=== PATIENT | female | born 1975 | race Caucasian/White ===

== ENCOUNTER 2017-11-21 07:56 | Day surgery (SDC) | payer OTHER ==
[2017-11-20 09:46] VITALS: BMI 22.8
[2017-11-21 10:01] VITALS: TEMP 98.2
[2017-11-21 12:52] VITALS: BP 107/61; PULSE 86
--- NOTE | 2017-11-22 17:49 | PATH ---
Surgical Pathology Report Patient Name: CARTER BISHOP [facility]. Rec. #: [id number] /Age/Gender: 1975 (Age: 42) / F Account: [id number] Location: [facility]-ENDOSCOPY Taken: 11/21/2017 Received: 11/21/2017 Reported: 11/22/2017 Physicians: Sylvester Pablo D.O. Specimen(s) Received A: POLYP SIGMOID B: RECTAL POLYP Clinical History Family history of colon cancer , colon polyps Final Diagnosis A. SIGMOID POLYP, POLYPECTOMY: HYPERPLASTIC POLYP. B. RECTAL POLYP, POLYPECTOMY: HYPERPLASTIC POLYP. Electronically Signed Monica Sin M.D. Gross Description A. Received in formalin, labeled "sigmoid polyp" are multiple lynn, irregular portions of soft tissue measuring 0.4 cm. in greatest dimension. The specimens are submitted in toto in one cassette. B. Received in formalin, labeled "rectal polyp" is a lynn, irregular portion of soft tissue measuring 0.3 cm. in greatest dimension. The specimens are submitted in toto in one cassette. __ KWS/11/21/2017 buck/11/21/2017
== END 2017-11-21 11:05 | disposition home or self-care (01) ==
LOC: JASU-ENDO 07:56
PROVIDERS: ATTEND Internal Medicine Gastroenterology
PROC: 0DBN8ZX Excision of Sigmoid Colon, Via Natural or Artificial Opening Endoscopic, Diagnostic (ICD-10-PCS; 2017-11-21)
PROC: 0DBP8ZX Excision of Rectum, Via Natural or Artificial Opening Endoscopic, Diagnostic (ICD-10-PCS; principal; 2017-11-21 08:45)
DX: Z12.11 Encounter for screening for malignant neoplasm of colon (principal); Z80.0 Family history of malignant neoplasm of digestive organs; K63.5 Polyp of colon; K62.1 Rectal polyp; K64.8 Other hemorrhoids; K63.89 Other specified diseases of intestine
CPT/HCPCS: 84703; 88305-TC

== ENCOUNTER 2022-08-25 05:21 | Day surgery (SDC) | payer BC ==
[2022-08-23 14:08] VITALS: BMI 23.5
[2022-08-25 08:41] VITALS: TEMP 98
[2022-08-25 09:11] VITALS: BP 125/64; PULSE 82; RESP 19
== END 2022-08-25 09:20 | disposition home or self-care (01) ==
LOC: JASU-ENDO 05:21
PROVIDERS: ATTEND Internal Medicine Gastroenterology
PROC: 0DJD8ZZ Inspection of Lower Intestinal Tract, Via Natural or Artificial Opening Endoscopic (ICD-10-PCS; principal; 2022-08-25 08:00)
DX: Z12.11 Encounter for screening for malignant neoplasm of colon (principal); K64.8 Other hemorrhoids; Z86.010 Personal history of colon polyps; Z80.0 Family history of malignant neoplasm of digestive organs
CPT/HCPCS: 81025

== ENCOUNTER 2023-06-30 04:16 | Day surgery (SDC) | payer BC ==
[2023-06-27 19:13] VITALS: BMI 22.7
[2023-06-30] MEDS ORDERED: BUPIVACAINE HCL/PF 0.5% (5MG/ML) 10 ML VIAL ONE (07:19)
[2023-06-30] MEDS ORDERED: PROPOFOL 40 ML ONE ×2 (07:31→09:26)
[2023-06-30] MEDS ORDERED: ROCURONIUM BROMIDE 50 MG/5 ML SYRINGE ONE (07:31)
[2023-06-30] MEDS ORDERED: DEXAMETHASONE SOD PHOSPHATE 4 MG/1 ML VIAL ONE (07:31)
[2023-06-30] MEDS ORDERED: LIDOCAINE HCL/PF 2% SDV 5ML VIAL ONE (07:31)
[2023-06-30] MEDS ORDERED: ACETAMINOPHEN INJECTION 100 ML IVPB ONE (07:31)
[2023-06-30] MEDS ORDERED: ceFAZolin SODIUM 1 GM VIAL ONE (07:31)
[2023-06-30] MEDS ORDERED: MIDAZOLAM HCL 2 MG/2 ML SINGLE DOSE VIAL ONE (07:32)
[2023-06-30] MEDS ORDERED: FENTANYL CITRATE/PF 50 MCG/ML VIAL ONE ×4 (07:32→12:29)
[2023-06-30] MEDS: ceFAZolin SODIUM 1 GM VIAL IVPB ONE ×2 (08:15)
[2023-06-30] MEDS: BUPIVACAINE HCL/PF 0.5% (5 MG/ML) 30 ML VIAL IJ ONE ×3 (08:31)
[2023-06-30] MEDS ORDERED: NEOSTIGMINE METHYLSULFATE 0.5 MG/1 ML - 10 ML MDV ONE (09:57)
[2023-06-30] MEDS ORDERED: ONDANSETRON 4 MG/2 ML VIAL IVPUSH PRN (10:35)
[2023-06-30] MEDS ORDERED: LACTATED RINGERS SOLUTION 1,000 ML IV SCH (10:45)
[2023-06-30 13:18] VITALS: RESP 18
[2023-06-30] MEDS ORDERED: oxyCODONE HCL 5 MG TABLET ONE (13:36)
[2023-06-30] MEDS: oxyCODONE HCL 5 MG TABLET PO PRN (13:41)
[2023-06-30 13:44] VITALS: BP 138/78; PULSE 69; TEMP 97.1
== END 2023-06-30 15:25 | disposition home or self-care (01) ==
LOC: JASU-SURG 04:16
PROVIDERS: ATTEND Surgery
PROC: 0FT44ZZ Resection of Gallbladder, Percutaneous Endoscopic Approach (ICD-10-PCS; principal; 2023-06-30 08:00)
DX: K80.10 Calculus of gallbladder with chronic cholecystitis without obstruction (principal); K66.0 Peritoneal adhesions (postprocedural) (postinfection); K82.1 Hydrops of gallbladder
CPT/HCPCS: 81025; 88304-TC; 94760; J0131

== ENCOUNTER 2023-07-13 05:20 | Inpatient (IN) | payer BC ==
[2023-07-13] MEDS ORDERED: morphine SULFATE 4 MG/ML VIAL ONE ×3 (05:51→08:35)
[2023-07-13] MEDS ORDERED: ONDANSETRON 4 MG/2 ML VIAL ONE (05:51)
[2023-07-13] MEDS: morphine CARPU-JECT 4 MG/1 ML DISP.SYRIN IVPUSH ONE ×4 (06:08→08:46)
[2023-07-13] MEDS: LACTATED RINGERS SOLUTION 1000 ML INFUS.BAG IV ONE (06:08)
[2023-07-13] MEDS: ONDANSETRON 4 MG/2 ML VIAL IVPUSH ONE (06:09)
[2023-07-13 06:27] LABS: BASO % 0.9 % (0-2.0); EOS % 3.2 % (0-4.5); HEMATOCRIT 42.1 % (32.4-45.2); HEMOGLOBIN 14.1 GM/dL (10.7-15.3); MCH 31.2 pg (25.7-33.7); MCHC 33.5 g/dl (32.0-36.0); MEAN PLT VOLUME 8.2 fl (7.5-11.1); MONO % 6.1 % (3.8-10.2); NEUT % 65.8 % (42.8-82.8); PLATELET COUNT 323 10^3/uL (134-434); RBC 4.52 M/mm3 (3.60-5.2); RDW 12.2 % (11.6-15.6); WHITE BLOOD COUNT 7.6 K/mm3 (4.0-10.0)
[2023-07-13 06:31] LABS: CALCIUM 9.4 mg/dL (8.5-10.1)
[2023-07-13 06:32] LABS: ALBUMIN 3.8 g/dl (3.4-5.0)
[2023-07-13 06:35] LABS: CREATININE 0.9 mg/dL (0.55-1.3)
[2023-07-13 06:36] LABS: BILIRUBIN,TOTAL 0.9 mg/dL (0.2-1); MAGNESIUM 2.1 mg/dL (1.8-2.4); TOT PROT 7.3 g/dl (6.4-8.2)
[2023-07-13] MEDS ORDERED: ACETAMINOPHEN INJECTION 100 ML IVPB ONE (06:37)
[2023-07-13] MEDS: ACETAMINOPHEN 1000 MG/100 ML BAG IVPB ONE (06:45)
[2023-07-13 06:50] LABS: INR 1.02 (0.83-1.09); PROTHROMBIN TIME (PATIENT) 11.5 SEC (9.7-13.0)
[2023-07-13] MEDS ORDERED: PIPERACILLIN/TAZOB 4.5 GM 4.5 GM/100 ML BAG IVPB ONE (10:00)
[2023-07-13] MEDS: PIPERACILLIN/TAZOB 4.5 GM 4.5 GM in DEXTROSE 5%-WATER 100 ML IVPB ONE (10:09)
[2023-07-13] MEDS ORDERED: ONDANSETRON 4 MG/2 ML VIAL IVPUSH PRN (10:32)
[2023-07-13] MEDS: ACETAMINOPHEN 1000 MG/100 ML BAG IVPB PRN ×2 (11:09→21:19)
[2023-07-13] MEDS: DEXTROSE 5%-0.45% SALINE 1,000 ML IV SCH (11:14)
[2023-07-13 11:22] VITALS: BMI 22.2
[2023-07-13] MEDS: PIPERACILLIN/TAZOB 3.375 GM 3.375 GM in DEXTROSE 5%-WATER - 50 ML IVPB SCH (17:20)
[2023-07-13] MEDS ORDERED: morphine SULFATE 4 MG/ML VIAL IVPUSH PRN (17:43)
[2023-07-13] MEDS ORDERED: PIPERACILLIN/TAZOB 3.375 GM 3.375 GM in DEXTROSE 5%-WATER - 50 ML IVPB SCH (18:00)
[2023-07-13] MEDS: PANTOPRAZOLE SODIUM 40 MG VIAL IVPUSH SCH (18:02)
[2023-07-13] MEDS: DOCUSATE SODIUM 100 MG CAPSULE (FP) PO SCH (21:22)
[2023-07-14 09:28] LABS: BASO % 0.4 % (0-2.0); EOS % 0.1 % (0-4.5); HEMATOCRIT 41.1 % (32.4-45.2); HEMOGLOBIN 14.2 GM/dL (10.7-15.3); LYMPH % 7.1 % (8-40); MCH 31.5 pg (25.7-33.7); MCHC 34.4 g/dl (32.0-36.0); MEAN CELL VOLUME 91.5 fl (80-96); MEAN PLT VOLUME 8.6 fl (7.5-11.1); MONO % 7.5 % (3.8-10.2); NEUT % 84.9 % (42.8-82.8); PLATELET COUNT 341 10^3/uL (134-434); RDW 12.2 % (11.6-15.6); WHITE BLOOD COUNT 13.1 K/mm3 (4.0-10.0)
[2023-07-14 09:45] LABS: POTASSIUM 3.8 mmol/L (3.5-5.1)
[2023-07-14 09:51] LABS: ALBUMIN 3.2 g/dl (3.4-5.0)
[2023-07-14 09:52] LABS: BLOOD UREA NITROGEN 6.7 mg/dL (7-18); CALCIUM 8.4 mg/dL (8.5-10.1)
[2023-07-14 09:53] LABS: CREATININE 0.6 mg/dL (0.55-1.3)
[2023-07-14 09:54] LABS: TOT PROT 6.7 g/dl (6.4-8.2)
[2023-07-14 09:55] LABS: BILIRUBIN,TOTAL 1.5 mg/dL (0.2-1)
[2023-07-14] MEDS ORDERED: MIDAZOLAM HCL 2 MG/2 ML SINGLE DOSE VIAL ONE (10:25)
[2023-07-14] MEDS ORDERED: FENTANYL CITRATE/PF 50 MCG/ML VIAL ONE (10:25)
[2023-07-14] MEDS: INDOMETHACIN 50 MG RECTAL SUPPOSITORY PR ONE (10:49)
[2023-07-14] MEDS ORDERED: GLUCAGON 1 MG KIT ONE (11:19)
[2023-07-14] MEDS: LACTATED RINGERS SOLUTION 1,000 ML/1,000 ML INFUS.BAG IV SCH (14:06)
[2023-07-15] MEDS: LACTATED RINGERS SOLUTION 1,000 ML/1,000 ML INFUS.BAG IV SCH (00:46)
[2023-07-15] MEDS ORDERED: LACTATED RINGERS SOLUTION 1,000 ML/1,000 ML INFUS.BAG IV SCH (04:45)
[2023-07-15 08:46] LABS: BASO % 0.4 % (0-2.0); EOS % 0.2 % (0-4.5); HEMATOCRIT 36.3 % (32.4-45.2); HEMOGLOBIN 12.4 GM/dL (10.7-15.3); MCH 31.6 pg (25.7-33.7); MCHC 34.2 g/dl (32.0-36.0); MEAN CELL VOLUME 92.3 fl (80-96); MEAN PLT VOLUME 8.3 fl (7.5-11.1); MONO % 8.2 % (3.8-10.2); NEUT % 74.2 % (42.8-82.8); PLATELET COUNT 278 10^3/uL (134-434); RBC 3.93 M/mm3 (3.60-5.2); RDW 12.5 % (11.6-15.6); WHITE BLOOD COUNT 10.4 K/mm3 (4.0-10.0)
[2023-07-15 08:53] LABS: POTASSIUM 3.5 mmol/L (3.5-5.1)
[2023-07-15 08:58] LABS: CALCIUM 8.5 mg/dL (8.5-10.1)
[2023-07-15 08:59] LABS: ALBUMIN 2.6 g/dl (3.4-5.0)
[2023-07-15 09:01] LABS: BILIRUBIN,DIRECT 0.4 mg/dL (0.0-0.2); CREATININE 0.6 mg/dL (0.55-1.3)
[2023-07-15 09:03] LABS: BILIRUBIN,TOTAL 1.4 mg/dL (0.2-1); TOT PROT 5.7 g/dl (6.4-8.2)
[2023-07-16 09:06] LABS: EOS % 1.7 % (0-4.5); HEMATOCRIT 35.6 % (32.4-45.2); HEMOGLOBIN 12.4 GM/dL (10.7-15.3); LYMPH % 24.3 % (8-40); MCH 32.2 pg (25.7-33.7); MEAN CELL VOLUME 92.1 fl (80-96); MEAN PLT VOLUME 8.3 fl (7.5-11.1); MONO % 8.3 % (3.8-10.2); NEUT % 64.7 % (42.8-82.8); PLATELET COUNT 298 10^3/uL (134-434); RBC 3.86 M/mm3 (3.60-5.2); RDW 12.4 % (11.6-15.6); WHITE BLOOD COUNT 5.8 K/mm3 (4.0-10.0)
[2023-07-16 09:11] LABS: POTASSIUM 3.6 mmol/L (3.5-5.1)
[2023-07-16 09:20] LABS: BLOOD UREA NITROGEN 7.1 mg/dL (7-18); CALCIUM 8.5 mg/dL (8.5-10.1)
[2023-07-16 09:21] LABS: ALBUMIN 2.8 g/dl (3.4-5.0)
[2023-07-16 09:23] LABS: BILIRUBIN,TOTAL 1.1 mg/dL (0.2-1); CREATININE 0.5 mg/dL (0.55-1.3)
[2023-07-16] MEDS: POLYETHYLENE GLYCOL (HEALTHYLAX) 3350 17 GM PACKET PO SCH (14:09)
[2023-07-16] MEDS: PANTOPRAZOLE 40 MG TABLET PO SCH (17:45)
[2023-07-17 08:55] LABS: EOS % 4.1 % (0-4.5); LYMPH % 26.2 % (8-40); MCH 32.3 pg (25.7-33.7); MCHC 35.1 g/dl (32.0-36.0); MEAN PLT VOLUME 8.1 fl (7.5-11.1); MONO % 6.7 % (3.8-10.2); PLATELET COUNT 327 10^3/uL (134-434); RBC 4.02 M/mm3 (3.60-5.2); RDW 12.2 % (11.6-15.6); WHITE BLOOD COUNT 5.4 K/mm3 (4.0-10.0)
[2023-07-17 09:18] LABS: POTASSIUM 3.8 mmol/L (3.5-5.1)
[2023-07-17 09:33] LABS: CALCIUM 9.2 mg/dL (8.5-10.1)
[2023-07-17 09:36] LABS: CREATININE 0.7 mg/dL (0.55-1.3)
[2023-07-17 09:38] LABS: BILIRUBIN,TOTAL 1.2 mg/dL (0.2-1); TOT PROT 6.2 g/dl (6.4-8.2)
[2023-07-17 15:02] VITALS: BP 146/78; PULSE 94; RESP 18; TEMP 99
== END 2023-07-17 15:11 | disposition home or self-care (01) | DRG 395 ==
LOC: JER 05:20 → JERBED 08:05 → OBSVTOIN 10:30 → J8W 10:31
PROVIDERS: ADMIT Internal Medicine; ATTEND Internal Medicine
PROC: 0F7D8DZ Dilation of Pancreatic Duct with Intraluminal Device, Via Natural or Artificial Opening Endoscopic (ICD-10-PCS; principal; 2023-07-14 10:00)
DX: K91.89 Other postprocedural complications and disorders of digestive system (principal); K83.9 Disease of biliary tract, unspecified; K64.8 Other hemorrhoids; Y83.8 Other surgical procedures as the cause of abnormal reaction of the patient, or of later complication, without mention of misadventure at the time of the procedure; I10 Essential (primary) hypertension
CPT/HCPCS: 36415; 71045-TC-FY; 74177-TC; 74330-TC; 76700-TC; 76705-TC; 78226-TC; 80053; 82248; 83605; 83690; 83735; 84484; 84703; 85025; 85610; 86140; 86850; 86900; 86901; 93005; 93010; 99285-25; A9537; G0378; J0131; Q9967

== ENCOUNTER 2023-08-24 04:41 | Day surgery (SDC) | payer BC ==
[2023-08-18 10:57] VITALS: BMI 21.4
[2023-08-24] MEDS ORDERED: FENTANYL CITRATE/PF 50 MCG/ML VIAL ONE (12:38)
[2023-08-24] MEDS ORDERED: MIDAZOLAM HCL 2 MG/2 ML SINGLE DOSE VIAL ONE (12:39)
[2023-08-24] MEDS: IOHEXOL 300 MG/ML INFUS..BTL IV ONE (13:00)
[2023-08-24] MEDS: INDOMETHACIN 50 MG RECTAL SUPPOSITORY PR ONE (13:38)
[2023-08-24] MEDS: LACTATED RINGERS SOLUTION 1,000 ML/1,000 ML INFUS.BAG IV SCH (13:49)
[2023-08-24 16:32] VITALS: BP 126/79; PULSE 72; RESP 16
[2023-08-24 16:34] VITALS: TEMP 97.6
== END 2023-08-24 16:59 | disposition home or self-care (01) ==
LOC: JASU-ENDO 04:41
PROVIDERS: ATTEND Internal Medicine Gastroenterology
PROC: BF11YZZ Fluoroscopy of Biliary and Pancreatic Ducts using Other Contrast (ICD-10-PCS; 2023-08-24)
PROC: 0FPB8DZ Removal of Intraluminal Device from Hepatobiliary Duct, Via Natural or Artificial Opening Endoscopic (ICD-10-PCS; principal; 2023-08-24 11:30)
DX: Z46.59 Encounter for fitting and adjustment of other gastrointestinal appliance and device (principal); K83.9 Disease of biliary tract, unspecified
CPT/HCPCS: 36415; 76000-TC-FY; 81025; 82150; 88300-TC